=== PATIENT | female | born 1960 | race Caucasian/White ===

== ENCOUNTER 2018-07-27 22:35 | Emergency (ER) | payer SELFPAY ==
[~2018-07-27] VITALS: Ht 157.5 cm; Wt 55.5 kg
[2018-07-27 22:41] VITALS: Ht 157.5 cm; Wt 55.5 kg
[2018-07-27] MEDS ORDERED: LYRICA200 MG (22:42)
[2018-07-27] MEDS ORDERED: XANAX2 MG PO (22:42)
[2018-07-28] MEDS ORDERED: NEURONTIN 300300 MG PO (00:46)
[2018-07-28] MEDS ORDERED: BACLOFEN20 M1 PO (00:46)
[2018-07-28 00:54] VITALS: BP 136/97
== END 2018-07-28 00:54 | disposition home or self-care (01) ==
LOC: D.ER 22:35
DX: E11.40 Type 2 diabetes mellitus with diabetic neuropathy, unspecified (principal); M79.662 Pain in left lower leg; F17.200 Nicotine dependence, unspecified, uncomplicated